=== PATIENT | male | born 1995 | race Caucasian/White ===

== ENCOUNTER 2017-07-18 13:11 | Emergency (ER) | payer MEDICAID ==
[~2017-07-18] VITALS: Ht 170.2 cm; Wt 64.9 kg
[2017-07-18 13:27] VITALS: Ht 170.2 cm; Wt 64.9 kg
[2017-07-18 17:55] LABS: BASOPHIL % 0.2 % (0-2); PLATELET COUNT 215 x10^3mcL (130-400); RED CELL DISTRIBUTION WIDTH 13.9 % (11.5-14.5)
[2017-07-18 18:00] LABS: CALCIUM 9.7 mg/dL (8.5-10.1); CARBON DIOXIDE 30.6 mmol/L (21-32); CHLORIDE SERUM 101 mmol/L (98-107); CREATININE SERUM 0.8 mg/dL (0.7-1.3); GFR1 > 60 mL/min; GLUCOSE SERUM 91 mg/dL (74-106); POTASSIUM SERUM 3.5 mmol/L (3.5-5.1); SODIUM SERUM 139 mmol/L (136-145)
[2017-07-18 18:05] LABS: ALBUMIN 4.3 g/dL (3.4-5.0); ALKALINE PHOSPHATASE 90 U/L (46-116); ALT/SGPT 43 U/L (16-63); AST/SGOT 25 U/L (15-37); BILIRUBIN TOTAL 0.92 mg/dL (0.20-1.00); C REACTIVE PROTEIN 6.2 mg/dL (<=0.9)
[2017-07-18 18:06] LABS: TOTAL PROTEIN, SERUM 8.8 g/dL (6.4-8.2)
[2017-07-18 19:04] VITALS: BP 138/87
[2017-07-18 20:11] LABS: ERYTHROCYTE SED RATE 20 mm/hr (0-15)
== END 2017-07-18 19:04 | disposition left against medical advice (07) ==
LOC: ED 13:11
PROVIDERS: Specialist
DX: L03.115 Cellulitis of right lower limb (principal); D72.829 Elevated white blood cell count, unspecified
CPT/HCPCS: 83880; 84439; J2543; J3490

== ENCOUNTER 2017-07-19 07:28 | Emergency (ER) | payer MEDICAID ==
[~2017-07-19] VITALS: Ht 170.2 cm; Wt 65.0 kg
[2017-07-19 08:26] VITALS: BP 135/71
== END 2017-07-19 08:26 | disposition home or self-care (01) ==
LOC: ED 07:28
DX: L03.115 Cellulitis of right lower limb (principal); L02.415 Cutaneous abscess of right lower limb
CPT/HCPCS: J1885

== ENCOUNTER 2018-03-31 10:54 | Emergency (ER) | payer MEDICAID ==
[~2018-03-31] VITALS: Ht 170.2 cm; Wt 63.5 kg
[2018-03-31 10:59] VITALS: Ht 170.2 cm; Wt 63.5 kg
[2018-03-31 11:38] VITALS: BP 135/76
== END 2018-03-31 11:38 | disposition home or self-care (01) ==
LOC: ED 10:54
DX: H10.11 Acute atopic conjunctivitis, right eye (principal); Z98.890 Other specified postprocedural states
CPT/HCPCS: J7512; Q0163

== ENCOUNTER 2018-04-02 13:42 | Emergency (ER) | payer MEDICAID ==
[~2018-04-02] VITALS: Ht 170.2 cm; Wt 64.9 kg
[2018-04-02 15:48] VITALS: BP 120/76
== END 2018-04-02 15:48 | disposition home or self-care (01) ==
LOC: ED 13:42
DX: H01.001 Unspecified blepharitis right upper eyelid (principal); Z98.890 Other specified postprocedural states

== ENCOUNTER 2018-04-21 11:42 | Emergency (ER) | payer MEDICAID ==
[~2018-04-21] VITALS: Ht 162.6 cm; Wt 64.4 kg
[2018-04-21 11:53] VITALS: BP 116/62
== END 2018-04-21 12:43 | disposition home or self-care (01) ==
LOC: ED 11:42
DX: H00.012 Hordeolum externum right lower eyelid (principal); Z98.890 Other specified postprocedural states

== ENCOUNTER 2018-06-17 12:56 | Emergency (ER) | payer OTHER ==
[~2018-06-17] VITALS: Ht 172.7 cm; Wt 63.0 kg
[2018-06-17 13:30] VITALS: BP 138/80; Ht 172.7 cm; Wt 63.0 kg
== END 2018-06-17 14:35 | disposition home or self-care (01) ==
LOC: ED 12:56
DX: K11.20 Sialoadenitis, unspecified (principal)
CPT/HCPCS: J1885